=== PATIENT | female | born 1935 | race Caucasian/White ===

== ENCOUNTER → 2020-06-10 | Outpatient (CLI) | payer OTHER ==
[~2020-06-10] MED LIST: CARVEDILOL25 MG PO; CO-ENZYME Q-1010 MG PO; CONSTULOSE10 GM/152 PO; DULOXETINE HCL60 MG PO; FUROSEMIDE 40 M40 M1 PO; MULTI VITAMIN1 EACH PO; NORCO7.5 PO; SPIRONOLACTONE25 MG PO; TIZANIDINE HCL 22 M1 PO
== END ==
LOC: LAB 13:27
PROVIDERS: ATTEND Otolaryngology Plastic Surgery within the Head & Neck
DX: Z01.812 Encounter for preprocedural laboratory examination (principal); Z20.822 Contact with and (suspected) exposure to COVID-19

== ENCOUNTER 2020-06-14 10:34 | Day surgery (SDC) | payer OTHER ==
[~2020-06-14] VITALS: Ht 160 cm; Wt 111.1 kg
[2020-06-14 16:11] VITALS: BP 9123/67
--- NOTE | 2020-06-18 18:06 | PATH ---
[facility] [address] [place] [address] PATHOLOGY RPT PROCEDURE Name: TAY VARELA Room #: [place] [facility]myR.#: [id number] Admission: 06/14/20 Date of : 37 Discharge: 06/14/20 Report #: [id number] Path Case #: [id number] L[facility] Accession Number: [id number] . 01 Material submitted: . salivary gland - LOWER LIP LESION WITH MINOR SALIVARY GLAND MUCOSAL BIOPSY. Modifiers: lower . 01 Clinical history: . EXCISION LESION DISEASES OF LIPS, MUCOCELE OF LOWER LIP . 02 Diagnosis: Lower lip lesion with minor salivary gland mucosal biopsy: - Squamous epithelium showing moderate acute and chronic inflammation along with hyperkeratosis. - Negative for dysplasia or malignancy. - Minor salivary gland tissue showing minimal acute and chronic inflammation; negative for significant chronic inflammation (please see comment). (IUV:apryl; 06/17/2020) MBR 06/17/2020 1630 Local . 02 Comment: Examination of the lower lip lesion biopsy tissue shows mild hyperkeratosis along with acute and chronic inflammation. The surface epithelium shows psoriasiform changes with mild mucosal hyperplasia. There is no dysplasia or malignancy present. A PAS-D fungal special stain is ordered on block A1 and the results of this will be reported in an addendum to follow. . The minor salivary gland shows scattered rare foci of mild chronic inflammation comprised of occasional lymphocytes as well as plasma cells. There are no foci identified within this biopsy tissue comprising of greater than 50 lymphocytes surrounding the salivary gland tissue. There is no evidence of Sjogren's syndrome identified within this biopsy tissue. Please note sample may not be entirely brand representative. Correlate clinically and followup as indicated. . (IUV:poultry hatchery manager; 06/17/2020) . 02 Addendum: . This addendum is issued subsequent to properly reviewing a properly controlled PASD fungal special stain performed on block A1. It shows no definite fungal elements present. (IUV:pit 06/18/2020) . [address] [address] PATHOLOGY RPT PROCEDURE Name: TAY VARELA Room #: [place] [facility] [place]ta#: [id number] Admission: 06/14/20 Date of : 37 Discharge: 06/14/20 Report #: [id number] Path Case #: [id number] Professional services performed by [facility] at [facility], [address] [place] [address] [place] [address]. Technical services performed by [facility] at [address] [place] [address], [address], [place] [address]. LBQ/06/18/2020 Addendum Electronically Signed by Freya Nicole MD, Pathologist . 02 Electronically signed: . Freya Nicole MD, Pathologist NPI- [id number] . 01 Gross description: . The specimen is received in formalin, labeled "really [place], lower lip lesion with minor salivary gland, mucosal biopsy". Received are two segments of light chamorro tissue measuring 0.3 and 0.4 cm in maximum dimensions and separately submitted segment of pale chamorro possible skin measuring 1.3 x 0.4 x 0.3 cm. The segment of possible skin is longitudinally bisected. The specimen is submitted entirely in cassette A1. (CAA; 06/16/2020) QA/QA 06/16/2020 1302 Local . 02 Pathologist provided ICD-10: K13.0, K11.23 . 02 CPT . 736836, 661970 Specimen Comment: A courtesy copy of this report has been sent to [phone] Specimen Comment: [phone] Specimen Comment: Report sent to / DR NOWAK Performed at: [address], [place], [place] [id number] MD Jens Chavez MD Phone: [phone] Performed at: 02 [facility] [address] [facility], [place], [place] [id number] MD Freya Nicole MD Phone: [phone]
--- NOTE | 2020-06-24 17:07 | O ---
[facility] [address] [place] [address] OPERATIVE REPORT Name: TAY VARELA Room #: DEP [facility].#: [id number] Admission: 06/14/20 Attend Phys: Maximilian Allen MD Discharge: 06/14/20 Date of : 37 Report #: [id number] THIS REPORT FOR: cc: Naomi Cárdenas,Naomi Allen,Maximilian Gregorio MD ~ DOC #: [id number] cc: Naomi Cárdenas MD, MD Maximilian Luis MD DATE OF SERVICE: 06/14/2020 SURGEON: Maximilian Allen MD PREOPERATIVE DIAGNOSES: 1. Oral mucocele, lower lip. 2. Sicca syndrome. POSTOPERATIVE DIAGNOSES: 1. Oral mucocele, lower lip. 2. Sicca syndrome. OPERATIONS PERFORMED: 1. Excisional biopsy of salivary gland and mucocele, lower lip for biopsy. 2. Multilayer closure lower lip, 2 cm. ANESTHESIA: General nasotracheal. INDICATIONS: The patient is an 85-year-old female referred by her infectious disease physician, Dr. Pereira, for an oral mucosal lesion that has been present for a long period of time and increasingly distressing. It is draining. Examination showed an oral mucocele, partially ruptured. Recommendations were made for excision. This was scheduled last month, but the patient called to cancel as her daughter and she now has rescheduled. She is still complaining. She also complains of the upper and lower lip secondary to her dry mouth, she has hypertrophied salivary tissue, which she can feel with her tongue through the mucosa. I assured her that these do not require a biopsy. In light of the above, recommendations were made to excise the mucocele. DESCRIPTION OF PROCEDURE: The patient was brought to the operating room and placed supine on the operating table. After adequate general anesthesia was achieved via nasotracheal intubation, she was turned to 180 degrees. A shoulder roll was placed and neck was extended. She was prepped and draped for surgery. A mouth gag was then applied as well as oral cheek retractors. Examination showed a 9 mm mucocele in the lower lip to the left of midline. A fusiform excision was then designed vertically and injected with 1% Xylocaine with [facility] [address] [place] [address] OPERATIVE REPORT Name: TAY VARELA [id number] Admission: 06/14/20 Attend Phys: Maximilian Allen MD Discharge: 06/14/20 Date of : 37 Report #: [id number] 1:100,000 epinephrine. Incision was made with a #15 blade and carried down to the orbicularis michela muscle. The salivary tissue and mucocele on the oral side of the muscle were then removed. The surrounding salivary glands were then plucked and removed, as I could gather to prevent reformation of another mucocele. These were placed in formalin and delivered off the field as specimen. The deep tissues were then cauterized with bipolar cautery. Closure was done deep with 4-0 chromic and then 4-0 chromic vertical mattress sutures were used to close the oral incision. Per the patient's request, a complete examination was made of the remaining upper and lower lips including examination with a loupe magnification. There was no evidence of any other abnormal masses present to biopsy. The oral cavity was then irrigated and suctioned. The patient was then returned to Anesthesia, awakened without difficulty, returned to recovery in good condition. Sponge and needle counts were correct. There were no complications. Blood loss was less than 5 mL. She will be watched until awake and stable. Presuming she does well, discharge to home with plans to follow up with me in 1 week. Written and verbal discharge instructions and emergency precautions have been given to her . DISCHARGE MEDICATIONS: Include: Peridex oral rinse 15 mL rinse and spit b.i.d., Kenalog in Orabase 0.1% paste to apply p.r.n., amoxicillin 500 mg 1 t.i.d. for 10 days, ondansetron 4 mg tablet 1 p.o. q. 4-6 hours p.r.n. and hydrocodone/acetaminophen 7.5/325 1-2 q. 4-6 hours p.r.n. She is instructed on light activity and a soft diet. MD KIA Regalado/OBDULIA/LASHAY <ELECTRONICALLY SIGNED> By: Maximilian Allen MD 06/24/20 1707 1221 1828 Maximilian Allen MD /janet
== END 2020-06-14 15:30 | disposition home or self-care (01) ==
LOC: OR 10:34 → TBA 10:50 → OR 15:30
PROVIDERS: ATTEND Otolaryngology Plastic Surgery within the Head & Neck
DX: K11.6 Mucocele of salivary gland (principal); M35.00 Sjogren syndrome, unspecified; K13.0 Diseases of lips; K11.23 Chronic sialoadenitis; I10 Essential (primary) hypertension; F32.9 Major depressive disorder, single episode, unspecified; Z95.0 Presence of cardiac pacemaker; Z98.890 Other specified postprocedural states; Z79.899 Other long term (current) drug therapy; Z96.651 Presence of right artificial knee joint; Z98.42 Cataract extraction status, left eye; Z98.41 Cataract extraction status, right eye; Z88.8 Allergy status to other drugs, medicaments and biological substances
CPT/HCPCS: 50010; 50101; 50386; 50398; 56524; 57006; 62110; 62900; 70005